=== PATIENT | male | born 2000 | race Caucasian/White ===

== ENCOUNTER 2021-12-31 13:42 | Emergency (ER) | payer BC ==
[~2021-12-31] VITALS: Ht 180.3 cm; Wt 77.1 kg
== END 2021-12-31 19:35 | disposition home or self-care (01) ==
LOC: ER 13:42
DX: T74.21XA Adult sexual abuse, confirmed, initial encounter (principal); T50.993A Poisoning by other drugs, medicaments and biological substances, assault, initial encounter; Y07.9 Unspecified perpetrator of maltreatment and neglect; Y92.89 Other specified places as the place of occurrence of the external cause